=== PATIENT | female | born 1950 | race Two or more races ===

== ENCOUNTER → 2016-10-27 | Outpatient (CLI) | payer MEDICAID ==
[~2016-10-27] MED LIST: GADOBUTROL 10 ML VIAL IVP ONE
== END ==
LOC: FIMAGING 13:27
PROVIDERS: ATTEND Family Medicine
DX: M54.6 Pain in thoracic spine (principal); M51.34 Other intervertebral disc degeneration, thoracic region
CPT/HCPCS: A9585

== ENCOUNTER → 2017-11-27 | Outpatient (CLI) | payer OTHER, MEDICAID | LOC: FIMAGING 10:45 | PROVIDERS: ATTEND Physician Assistant | DX: R19.00 Intra-abdominal and pelvic swelling, mass and lump, unspecified site (principal); N64.4 Mastodynia ==

== ENCOUNTER → 2017-11-27 | Outpatient (CLI) | payer OTHER, MEDICAID | LOC: FIMAGING 09:39 | PROVIDERS: ATTEND Physician Assistant | DX: N64.4 Mastodynia (principal) ==

== ENCOUNTER 2018-01-22 20:54 | Emergency (ER) | payer OTHER, MEDICAID ==
[2018-01-22 22:08] LABS: PLATELET COUNT 252 10^3/uL (150-400)
--- NOTE | 2018-01-22 22:12 | EDPHY ---
H & P Stated Complaint: SOB, cough with bilat feet swelling no travel for 4 days Time Seen by Provider: 01/22/18 22:00 HPI/ROS: History obtained using hourly sign language interpreter at the bedside. HPI The patient presents with 4 days of progressive left greater than right lower extremity edema and pain. This started spontaneously and has gotten progressively worse. It makes it difficult for her to walk because of the degree of swelling. She denies any injuries. She says the swelling feels similar to when she was diagnosed with a DVT in 2016 and took anticoagulants for 3 months, not taking any currently. Since today she has developed shortness of breath which is present constantly though is somewhat worse when she ambulates. It is associated with a dry cough. She is able to lie flat at night. As she is on Lasix daily and her dose has not changed recently. She is being evaluated by her primary care doctor for which she describes as high protein levels. REVIEW OF SYSTEMS Constitutional: No fever, no chills. Eyes: No discharge. ENT: No sore throat. Cardiovascular: No chest pain, no palpitations. Respiratory: No cough, no shortness of breath. Gastrointestinal: No abdominal pain, no vomiting. Genitourinary: No hematuria. Musculoskeletal: No back pain. Skin: No rashes. Neurological: No headache. 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, not currently on anticoagulation, type 2 diabetes, hypertension, hyperlipidemia Soc Hx: Housed PHYSICAL General Appearance: Alert, no distress Eyes: Pupils equal and round no pallor or injection ENT, Mouth: Mucous membranes moist Respiratory: There are no retractions, lungs are clear to auscultation Cardiovascular: Regular rate and rhythm Gastrointestinal: Abdomen is soft and non-tender, no masses, bowel sounds normal Neurological: A&O, moves all extremities Skin: Warm and dry, no rashes Musculoskeletal: Neck is supple non tender Extremities: Left greater than right lower extremity edema with erythematous papular rash Psychiatric: Patient is oriented X 3, there is no agitation Source: Patient Exam Limitations: No limitations - Personal History Current Tetanus/Diphtheria Vaccine: Yes Current Tetanus Diphtheria and Acellular Pertussis (TDAP): Yes - Medical/Surgical History Hx Asthma: No Hx Chronic Respiratory Disease: No Hx Diabetes: Yes Hx Cardiac Disease: No Hx Renal Disease: No Hx Cirrhosis: No Hx Alcoholism: No Hx HIV/AIDS: No Hx Splenectomy or Spleen Trauma: No Other PMH: HTN, DM, DVT, high chol - Social History Smoking Status: Never smoked Constitutional: Initial Vital Signs Temperature (C) 37.0 C 01/22/18 21:07 Heart Rate 90 01/22/18 21:07 Respiratory Rate 16 01/22/18 21:07 Blood Pressure 148/74 H 01/22/18 21:07 O2 Sat (%) 94 01/22/18 21:07 O2 Delivery Mode Room Air O2 (L/minute) 2 Allergies/Adverse Reactions: ibuprofen Allergy (Unknown, Verified 01/17/16 06:33) Home Medications: Medication Instructions Recorded Acetaminophen [Tylenol 325mg (*)] 650 mg PO Q4 PRN #0 tab 01/17/16 Citalopram [CeleXA 20 MG] 20 mg PO DAILY 01/17/16 Furosemide [Lasix 20 MG (*)] 20 mg PO MWF 01/17/16 Herbals/Supplements -Info Only 1 ea PO DAILY 01/17/16 Losartan Potassium [Cozaar 50 mg 50 mg PO DAILY 01/17/16 (*)] Omeprazole [Prilosec 20 mg] 20 mg PO BIDMEAL 01/17/16 Potassium Chloride [Klor-Con 10 meq PO MWF 01/17/16 Sprinkle] amLODIPine BESYLATE [Norvasc 5 mg 5 mg PO DAILY 01/17/16 (*)] metFORMIN SR [Glucophage XR 500 mg 500 mg PO BIDMEAL 01/17/16 (*)] oxyCODONE IR [Oxycodone Ir (*)] 5 mg PO HS PRN 01/17/16 oxyCODONE IR [Oxycodone Ir (*)] 10 mg PO DAILY PRN 01/17/16 Amlodipine Besylate 10/19/16 Flaxseed Oil 10/19/16 IRON 10/19/16 Vitamin D3 10/19/16 Miralax 17 gm (*) 10/24/16 Potassium Chloride 10/24/16 Medical Decision Making - Diagnostics Imaging Results: Imaging Impressions Chest X-Ray 01/22/18 22:01 Impression: Nothing new. Nonspecific peribronchial thickening is unchanged. Extremity Venous Study 01/22/18 22:10 Impression: No evidence of deep vein thrombosis in the left leg. Findings and recommendations discussed with Lina Davis MD at 10:56 PM hour, 01/22/2018. Final report concurs with initial preliminary interpretation. CT chest with contrast demonstrates no pulmonary embolism, discussed with Dr. Dickens of Radiology. Imaging: Discussed imaging studies w/ scallop raker Radiologist Differential Diagnosis: 67-year-old female presents with several days of right greater than left lower extremity edema also with 1 day of shortness of breath. Differential diagnosis includes PE, DVT, heart failure, pneumonia, COPD, less likely cellulitis. In the emergency department, patient had DVT study which was negative. Labs were checked and were relatively unremarkable including troponin. D-dimer was elevated at 1.4. Because of this and her shortness of breath, decision was made to perform CT scan of her chest which did not demonstrate pulmonary embolism. I have given her a dose of Lasix, 20 mg IV with appropriate diuresis here. Her symptoms have improved. She takes Lasix every other day 20 mg for peripheral edema. I have advised her to take it for the next 4 days continuously to see if this helps her leg swelling. I have asked that she follow up with her primary care doctor. She is happy with this plan and will be discharged from the emergency department. - Data Points Laboratory Results: Laboratory Results 01/22/18 21:35 01/22/18 21:35 01/22/18 01/22/18 01/22/18 22:58 21:35 21:35 WBC RBC Hgb Hct MCV MCH MCHC RDW Plt Count MPV Neut % (Auto) Lymph % (Auto) Mower % (Auto) Eos % (Auto) Baso % (Auto) Nucleat RBC Rel Count Absolute Neuts (auto) Absolute Lymphs (auto) Absolute Monos (auto) Absolute Eos (auto) Absolute Basos (auto) Absolute Nucleated RBC Immature Gran % Immature Gran # D-Dimer 1.28 ug/mLFEU H ug/mLFEU (0.00-0.50) Sodium 141 mEq/L mEq/L (135-145) Potassium 3.5 mEq/L mEq/L (3.3-5.0) Chloride 102 mEq/L mEq/L (97-110) Carbon Dioxide 25 mEq/l mEq/l (22-31) Anion Gap 14 mEq/L mEq/L (8-16) BUN 21 mg/dL mg/dL (7-23) Creatinine 0.7 mg/dL mg/dL (0.6-1.0) Estimated GFR > 60 Glucose 216 mg/dL H mg/dL (70-100) Calcium 9.8 mg/dL mg/dL (8.5-10.4) POC Troponin I 0.00 ng/mL ng/mL (0.00-0.08) NT-Pro-B Natriuret Pep 43 pg/mL pg/mL (0-125) 01/22/18 21:35 WBC 8.38 10^3/uL 10^3/uL (3.80-9.50) RBC 4.21 10^6/uL 10^6/uL (4.18-5.33) Hgb 11.8 g/dL L g/dL (12.6-16.3) Hct 35.2 % L % (38.0-47.0) MCV 83.6 fL fL (81.5-99.8) MCH 28.0 pg pg (27.9-34.1) MCHC 33.5 g/dL g/dL (32.4-36.7) RDW 15.0 % % (11.5-15.2) Plt Count 252 10^3/uL 10^3/uL (150-400) MPV 9.3 fL fL (8.7-11.7) Neut % (Auto) 52.4 % % (39.3-74.2) Lymph % (Auto) 34.5 % % (15.0-45.0) Mower % (Auto) 8.7 % % (4.5-13.0) Eos % (Auto) 3.6 % % (0.6-7.6) Baso % (Auto) 0.4 % % (0.3-1.7) Nucleat RBC Rel Count 0.0 % % (0.0-0.2) Absolute Neuts (auto) 4.40 10^3/uL 10^3/uL (1.70-6.50) Absolute Lymphs (auto) 2.89 10^3/uL 10^3/uL (1.00-3.00) Absolute Monos (auto) 0.73 10^3/uL 10^3/uL (0.30-0.80) Absolute Eos (auto) 0.30 10^3/uL 10^3/uL (0.03-0.40) Absolute Basos (auto) 0.03 10^3/uL 10^3/uL (0.02-0.10) Absolute Nucleated RBC 0.00 10^3/uL 10^3/uL (0-0.01) Immature Gran % 0.4 % % (0.0-1.1) Immature Gran # 0.03 10^3/uL 10^3/uL (0.00-0.10) D-Dimer Sodium Potassium Chloride Carbon Dioxide Anion Gap BUN Creatinine Estimated GFR Glucose Calcium POC Troponin I NT-Pro-B Natriuret Pep Medications Given: Discontinued Medications Albuterol/Ipratropium (Duoneb) 3 ml IH EDNOW ONE Stop: 01/22/18 23:07 Last Admin: 01/22/18 23:39 Dose: 3 ml Furosemide (Lasix Injection) 20 mg IVP EDNOW ONE Stop: 01/23/18 00:00 Last Admin: 01/23/18 00:17 Dose: 20 mg Point of Care Test Results: Chemistry 01/22/18 22:58 POC Troponin I 0.00 ng/mL ng/mL (0.00-0.08) Departure - Departure Disposition: Home, Routine, Self-Care Clinical Impression: Shortness of breath, Leg swelling Condition: Good Instructions: Dyspnea (ED) Additional Instructions: Le recomiendo que tome Lasix diariamente makenna los prximos 4 soriano para ashley si esto ayuda a hinchar la pierna. Por favor, shaylee un seguimiento con cartagena mdico en los prximos 2-3 soriano para celia nueva verificacin. Regrese al departamento de emergencias si es peor de alguna manera. Referrals: Allison Cisneros MD [Primary Care Provider] - As per Instructions Print Language: Macanese
--- NOTE | 2018-01-22 22:58 | CPEKG ---
Heart Rate: 68 RR Interval: 882 P-R Interval: 180 QRSD Interval: 84 QT Interval: 424 QTC Interval: 451 P [place]: 42 QRS [place]: 11 T Wave [place]: 35 EKG Severity - ABNORMAL ECG - EKG Impression: SINUS RHYTHM EKG Impression: ATRIAL PREMATURE COMPLEX EKG Impression: NONSPECIFIC T ABNORMALITIES, ANTERIOR LEADS Electronically Signed By: Lina Davis 23-Jan-2018 03:24:03
[2018-01-22] MEDS ORDERED: IPRATROPIUM/ALBUTEROL 3 ML DEYVIAL IH ONE (23:06)
[2018-01-22] MEDS ORDERED: IOPAMIDOL (ISOVUE 370) 100 ML BTL IV ONE (23:22)
[2018-01-22] MEDS ORDERED: FUROSEMIDE 20 MG/2 ML VIAL IVP ONE (23:59)
[2018-01-23 02:19] VITALS: BP 114/64
== END 2018-01-23 02:19 | disposition home or self-care (01) ==
DX: M79.89 Other specified soft tissue disorders (principal); R06.02 Shortness of breath; I10 Essential (primary) hypertension; E11.9 Type 2 diabetes mellitus without complications; Z79.84 Long term (current) use of oral hypoglycemic drugs
CPT/HCPCS: 71046; 71275; 93005; 93971; 96374; 99285; J1940; Q9967; 84484-PO

== ENCOUNTER 2018-05-12 05:49 | Day surgery (SDC) | payer OTHER, MEDICAID ==
[2018-05-12] MEDS ORDERED: ceFAZolin 2 GM/DEXTROSE 100 ML IV ONE (06:05)
[2018-05-12] MEDS ORDERED: LR 1,000 ML IV ONE (06:08)
[2018-05-12] MEDS ORDERED: LIDOCAINE 1% 2 ML INJ ONE (06:17)
[2018-05-12] MEDS ORDERED: BUPIVACAINE 0.5% 30 ML SDV ONE (06:27)
[2018-05-12] MEDS ORDERED: oxyCODONE IR 5 MG TAB PO PRN (06:46)
[2018-05-12] MEDS ORDERED: NALOXONE HCL 0.4 MG/ML INJ IVP PRN (06:46)
[2018-05-12] MEDS ORDERED: MIDAZOLAM 2 MG/2 ML VIAL IVP ONE (06:46)
[2018-05-12] MEDS ORDERED: ACETAMINOPHEN 500 MG TAB PO PRN (06:46)
[2018-05-12] MEDS ORDERED: HYDROCODONE/APAP 5/325 TAB PO PRN (06:46)
[2018-05-12] MEDS ORDERED: HYDROmorphONE/DILAUDID 2 MG/ML INJ IVP PRN (06:46)
[2018-05-12] MEDS ORDERED: ONDANSETRON 4 MG/2 ML VIAL IVP PRN (06:46)
[2018-05-12] MEDS ORDERED: DEXAMETHASONE 4 MG/ML VIAL IVP PRN (06:46)
[2018-05-12] MEDS ORDERED: ALBUTEROL 3 ML DEYVIAL IH PRN (06:46)
--- NOTE | 2018-05-12 06:48 | PDANEPAE ---
ANE History of Present Illness Breast Biopsy ANE Past Medical History - Cardiovascular History Hx Hypertension: Yes Hx Arrhythmias: No Hx Chest Pain: No Hx Coronary Artery / Peripheral Vascular Disease: No Hx CHF / Valvular Disease: No Hx Palpitations: No Cardiovascular History Comment: pcp monitors bp medications. hx of dvt with panectomy 2016 - Pulmonary History Hx COPD: No Hx Asthma/Reactive Airway Disease: No Hx Recent Upper Respiratory Infection: No Hx Oxygen in Use at Home: No Hx Sleep Apnea: Yes Sleep Apnea Screening Result - Last Documented: Positive Pulmonary History Comment: WANDER USES C-PAP INSTRUCTED TO BRING DOS - Neurologic History Hx Cerebrovascular Accident: No Hx Seizures: No Hx Dementia: No - Endocrine History Hx Diabetes: Yes Endocrine History Comment: NIDDM - Renal History Hx Renal Disorders: No - Liver History Hx Hepatic Disorders: No - Neurological & Psychiatric Hx Hx Neurological and Psychiatric Disorders: Yes Neurological / Psychiatric History Comment: depression/ANXIETY - Cancer History Hx Cancer: No - Congenital Disorder History Hx Congenital Disorders: No - GI History Hx Gastrointestinal Disorders: Yes Gastrointestinal History Comment: GERD. CONSTIPATION - Other Health History Other Health History: HX OF DVT. ANEMIA. OSTEOARTHRITIS - Chronic Pain History Chronic Pain: Yes (back on the right side) - Surgical History Prior Surgeries: egd . ear surgery. right TOTAL knee 2009. hortencia 2016. tubal ligation. ABDOMINAL penectomy 2016 ANE Review of Systems Review of Systems: - Exercise capacity METS (RN): 4 METS ANE Patient History - Allergies Allergies/Adverse Reactions: ibuprofen Allergy (Unknown, Verified 05/09/18 12:37) STOMACH UPSET - Home Medications Home Medications: Citalopram [CeleXA 20 MG] 20 mg PO DAILY 01/17/16 [Last Taken 05/11/18 08:00] Furosemide [Lasix 20 MG (*)] 20 mg PO MWF 01/17/16 [Last Taken 05/10/18] Herbals/Supplements -Info Only 1 ea PO DAILY 01/17/16 [Last Taken 05/11/18] Losartan Potassium [Cozaar 50 mg (*)] 50 mg PO DAILY 01/17/16 [Last Taken 08:00] Omeprazole [Prilosec 20 mg] 20 mg PO DAILY 01/17/16 [Last Taken 05/12/18 04:00] Potassium Chloride [Klor-Con Sprinkle] 10 meq PO DAILY 01/17/16 [Last Taken 02/19] amLODIPine BESYLATE [Norvasc 5 mg (*)] 5 mg PO DAILY 01/17/16 [Last Taken 04:00] metFORMIN SR [Glucophage XR 500 mg (*)] 500 mg PO BIDMEAL 01/17/16 [Last Taken 05/11/18 17:00] oxyCODONE IR [Oxycodone Ir (*)] 5 mg PO HS PRN 01/17/16 [Last Taken 05/11/18 17: 00] oxyCODONE IR [Oxycodone Ir (*)] 10 mg PO DAILY PRN 01/17/16 [Last Taken 04:00] Flaxseed Oil BID 10/19/16 [Last Taken 05/11/18 16:00] IRON DAILY 10/19/16 [Last Taken 05/11/18] Miralax 17 gm (*) HS 10/24/16 [Last Taken 05/10/18] Atorvastatin Calcium HS 05/09/18 [Last Taken 05/11/18 17:00] Chlorpheniramine Maleate DAILY 05/09/18 [Last Taken 05/11/18] - Smoking Hx Smoking Status: Never smoked - Family Anes Hx Family Hx Anesthesia Complications: none ANE Labs/Vital Signs - Vital Signs Height: 154.94 cm Weight: 90.718 kg ANE Physical Exam - Airway Neck exam: FROM Mallampati Score: Class 2 Mouth exam: normal dental/mouth exam - Pulmonary Pulmonary: clear to auscultation - Cardiovascular Cardiovascular: regular rate and rhythym - ASA Status ASA Status: III ANE Anesthesia Plan Anesthesia Plan: GA w LMA
[2018-05-12] MEDS ORDERED: NA BICARBONATE 50 MEQ/50 ML VIAL ONE (06:55)
[2018-05-12] MEDS ORDERED: LIDOCAINE 1% 300 MG/30 ML SDV ONE (06:55)
[2018-05-12] MEDS ORDERED: THROMBIN (BOVINE) 5,000 UNIT VIAL TP ONE (06:55)
[2018-05-12] MEDS ORDERED: PROPOFOL 200 MG/20 ML VIAL ONE (07:01)
[2018-05-12] MEDS ORDERED: fentaNYL 100 MCG/2 ML INJ ONE ×2 (07:02→08:16)
--- NOTE | 2018-05-12 07:13 | PDHPUP ---
History & Physical Update H&P update statement: This history and physical update is based on an assessment of the patient which was completed after admission or registration (within 24 hours), but prior to the surgery/procedure. H&P update: H&P reviewed & patient examined, no change in patient's condition since H&P completed
[2018-05-12] MEDS ORDERED: ONDANSETRON 4 MG/2 ML VIAL ONE (07:29)
[2018-05-12] MEDS ORDERED: METOCLOPRAMIDE 10 MG/2 ML VIAL ONE (07:29)
[2018-05-12] MEDS ORDERED: ePHEDrine SULFATE 25 MG/5 ML SYR ONE (07:37)
--- NOTE | 2018-05-12 08:05 | POSTANESTH ---
Post Anesthetic Evaluation Cardiovascular Status: Normal, Stable Respiratory Status: Normal, Stable Level of Consciousness/Mental Status: Can Participate in Eval, Alert and Oriented Pain Control: Adequate, Prn Tx Ordered Nausea/Vomiting Control: Adequate, Prn Tx Ordered Complications Possibly Related to Anesthesia: None Noted
--- NOTE | 2018-05-12 08:06 | POSTOPPROG ---
Post Op Note Date of Operation: 05/12/18 Surgeon: Chriss [facility] Director: Elvira Tran Anesthesiologist: Tonio Felix Anesthesia: GET(General Endotracheal) Pre-op Diagnosis: R painful breast mass Post-op Diagnosis: same Procedure: excisional R breast biopsies Findings: lipomatous tissue Inf/Abcess present in the surg proc area at time of surgery?: No EBL: Minimal Complications: none Specimen(s): R breast mass to pathology
[2018-05-12] MEDS: fentaNYL 100 MCG/2 ML INJ IVP PRN ×2 (08:18→08:41)
[2018-05-12] MEDS ORDERED: oxyCODONE IR 5 MG TAB ONE (09:04)
[2018-05-12 10:19] VITALS: BP 125/61
== END 2018-05-12 10:05 | disposition home or self-care (01) ==
LOC: FSGY 05:49
PROVIDERS: ATTEND Surgery
PROC: 0HBT0ZZ Excision of Right Breast, Open Approach (ICD-10-PCS; principal; 2018-05-12 07:15)
DX: D24.1 Benign neoplasm of right breast (principal); D17.9 Benign lipomatous neoplasm, unspecified; N64.4 Mastodynia; E11.9 Type 2 diabetes mellitus without complications; I10 Essential (primary) hypertension; G47.33 Obstructive sleep apnea (adult) (pediatric); Z86.718 Personal history of other venous thrombosis and embolism
CPT/HCPCS: J0690; J2250; J2405; J2704; J2765; J3010

== ENCOUNTER 2018-05-17 16:47 | Emergency (ER) | payer OTHER, MEDICAID ==
[2018-05-17] MEDS ORDERED: NS 1,000 ML IV ONE ×2 (17:18→18:47)
[2018-05-17] MEDS ORDERED: PROMETHAZINE HCL 25 MG/ML INJ IVP ONE (17:19)
--- NOTE | 2018-05-17 17:28 | EDPHY ---
H & P Time Seen by Provider: 05/17/18 17:10 HPI/ROS: CHIEF COMPLAINT: Nausea and chills HISTORY OF PRESENT ILLNESS: Patient had breast biopsy on Saturday this week. She was doing well until yesterday when she started having nausea and chills. This is associated with some pain in her right chest over the wound site extending to her right arm. Not associated with cough or urinary symptoms or vomiting or diarrhea. Symptoms mild to moderate. Not worse with position deep breath or exertion. No hemoptysis, no leg swelling. Patient does have a history of DVT in her right leg in 2016. She also has history of diabetes and hypertension. She does not have any symptoms in the left side of her chest. REVIEW OF SYSTEMS: Eye: no change in vision ENT: no sore throat Cardiac: No palpitations or syncope Pulmonary: HPI, not short of breath. Abdomen: No abdominal pain. No vomiting. She does have nausea. She has had occasional blood with mucus in her stool for at least a year, no change today. Musculoskeletal: No leg swelling Skin: no rash Neuro: no headache Constitutional: no fever : no urinary symptoms A comprehensive 10 point review of systems is otherwise negative aside from elements mentioned in the history of present illness. PAST MEDICAL HISTORY: Hypertension, diabetes, DVT, hypercholesterolemia. Partial gastrectomy and cholecystectomy. Right breast biopsy earlier this week. Social history: Assisted with wound care technician personally present in the room for Macedonian language. General Appearance: Alert and conversant, cooperative. Eyes: No scleral icterus. ENT, Mouth: Normal mucous membranes. Normal pharynx. Respiratory: Normal respiratory effort, breath sounds equal, lungs are clear to auscultation. Not splinting. Cardiovascular: Regular rate and rhythm. No murmurs. Gastrointestinal: Abdomen is soft and non tender. Neurological: Alert, face symmetric, normal motor and sensory in extremities. Skin: The right surgical breast biopsy site is clean dry and intact. Steri- Strips are present. No fluctuance and no surrounding redness and no lymphangitis. Musculoskeletal: No peripheral edema in the right arm compared to the left. Normal right radial pulse and normal motor and sensory in the right hand. No calf tenderness. Psychiatric: Not agitated. Emergency Department course/MDM: Plan for chest x-ray and urinalysis with chills. EKG troponin D-dimer and chest x-ray with right-sided chest pain. Ultrasound of the right arm to evaluate for DVT. 1812: Ultrasound negative for DVT, EKG and troponin negative. D-dimer elevated and CT angio discussed and consented. Urine pending. 1901: CTA per Dr. Kenney negative for PE or other reason for chest pain. Results discussed with the patient through wound care technician. She is having a lot of anxiety, attempted to reassure her that she does not appear to have an emergent medical or surgical condition tonight. 1938: Patient still having a lot of anxiety despite reassurance. 0.5 mg IV Ativan. I think it is safe for her to be discharged; patient in agreement. Smoking Status: Never smoked Constitutional: Initial Vital Signs Temperature (C) 36.8 C 05/17/18 16:57 Heart Rate 96 05/17/18 16:57 Respiratory Rate 18 05/17/18 16:57 Blood Pressure 115/85 H 05/17/18 16:57 O2 Sat (%) 95 05/17/18 16:57 O2 Delivery Mode Room Air Allergies/Adverse Reactions: ibuprofen Adverse Reaction (Unknown, Verified 05/17/18 17:03) STOMACH UPSET Home Medications: Medication Instructions Recorded Citalopram [CeleXA 20 MG] 20 mg PO DAILY 01/17/16 Furosemide [Lasix 20 MG (*)] 20 mg PO MWF 01/17/16 Herbals/Supplements -Info Only 1 ea PO DAILY 01/17/16 Losartan Potassium [Cozaar 50 mg 50 mg PO DAILY 01/17/16 (*)] Omeprazole [Prilosec 20 mg] 20 mg PO DAILY 01/17/16 Potassium Chloride [Klor-Con 10 meq PO DAILY 01/17/16 Sprinkle] amLODIPine BESYLATE [Norvasc 5 mg 5 mg PO DAILY 01/17/16 (*)] metFORMIN SR [Glucophage XR 500 mg 500 mg PO BIDMEAL 01/17/16 (*)] oxyCODONE IR [Oxycodone Ir (*)] 5 mg PO HS PRN 01/17/16 oxyCODONE IR [Oxycodone Ir (*)] 10 mg PO DAILY PRN 01/17/16 Flaxseed Oil BID 10/19/16 IRON DAILY 10/19/16 Miralax 17 gm (*) HS 10/24/16 Atorvastatin Calcium HS 05/09/18 Chlorpheniramine Maleate DAILY 05/09/18 oxyCODONE HCL/ACETAMINOPHEN 1 each PO Q6H #20 tablet 05/12/18 [Percocet 5-325 mg Tablet] Medical Decision Making - Diagnostics EKG Interpretation: 12-lead EKG interpreted by me; official reading is in computer system. My interpretation is sinus rhythm with prolonged QT, no ischemic changes. Imaging Results: Imaging Impressions Chest X-Ray 05/17/18 17:18 Impression: Mild perihilar bronchitis, without a focal infiltrate. Extremity Venous Study 05/17/18 17:19 Impression: There is no sonographic evidence of venous thrombosis in the right arm. Findings were discussed with BROWN GALLEGOS MD at 18:06, on 05/17/2018. Chest/Thorax CTA 05/17/18 18:11 Impression: There is no evidence for pulmonary artery thromboembolic disease. Findings were discussed with BROWN GALLEGOS MD at 19:00, on 05/17/2018. Imaging: Discussed imaging studies w/ combination operator Radiologist, I viewed and interpreted images myself Differential Diagnosis: Differential diagnosis considered for chest pain including but not limited to myocardial ischemia, aortic dissection, pericarditis, pulmonary embolus, chest wall pain, pleural inflammation and pulmonary infectious causes. - Data Points Laboratory Results: Laboratory Results 05/17/18 17:25 05/17/18 17:25 05/17/18 05/17/18 05/17/18 19:00 18:50 17:25 WBC RBC Hgb Hct MCV MCH MCHC RDW Plt Count MPV Neut % (Auto) Lymph % (Auto) [place] % (Auto) Eos % (Auto) Baso % (Auto) Nucleat RBC Rel Count Absolute Neuts (auto) Absolute Lymphs (auto) Absolute Monos (auto) Absolute Eos (auto) Absolute Basos (auto) Absolute Nucleated RBC Immature Gran % Immature Gran # D-Dimer Sodium 141 mEq/L mEq/L (135-145) Potassium 4.0 mEq/L mEq/L (3.3-5.0) Chloride 106 mEq/L mEq/L (97-110) Carbon Dioxide 23 mEq/l mEq/l (22-31) Anion Gap 12 mEq/L mEq/L (6-14) BUN 17 mg/dL mg/dL (7-23) Creatinine 0.7 mg/dL mg/dL (0.6-1.0) Estimated GFR > 60 Glucose 121 mg/dL H mg/dL (70-100) Calcium 9.9 mg/dL mg/dL (8.5-10.4) POC Troponin I 0.00 ng/mL ng/mL (0.00-0.08) Urine Color YELLOW Urine Appearance CLEAR Urine pH 5.0 (5.0-7.5) Ur Specific [place] > 1.060 H (1.002-1.030) Urine Protein NEGATIVE (NEGATIVE) Urine Ketones NEGATIVE (NEGATIVE) Urine Blood NEGATIVE (NEGATIVE) Urine Nitrate NEGATIVE (NEGATIVE) Urine Bilirubin NEGATIVE (NEGATIVE) Urine Urobilinogen NEGATIVE EU EU (0.2-1.0) Ur Leukocyte Esterase NEGATIVE (NEGATIVE) Urine Glucose NEGATIVE (NEGATIVE) 05/17/18 05/17/18 17:25 17:25 WBC 8.60 10^3/uL 10^3/uL (3.80-9.50) RBC 4.50 10^6/uL 10^6/uL (4.18-5.33) Hgb 12.6 g/dL g/dL (12.6-16.3) Hct 38.2 % % (38.0-47.0) MCV 84.9 fL fL (81.5-99.8) MCH 28.0 pg pg (27.9-34.1) MCHC 33.0 g/dL g/dL (32.4-36.7) RDW 15.5 % H % (11.5-15.2) Plt Count 296 10^3/uL 10^3/uL (150-400) MPV 9.0 fL fL (8.7-11.7) Neut % (Auto) 58.8 % % (39.3-74.2) Lymph % (Auto) 31.4 % % (15.0-45.0) [place] % (Auto) 8.1 % % (4.5-13.0) Eos % (Auto) 1.2 % % (0.6-7.6) Baso % (Auto) 0.3 % % (0.3-1.7) Nucleat RBC Rel Count 0.0 % % (0.0-0.2) Absolute Neuts (auto) 5.05 10^3/uL 10^3/uL (1.70-6.50) Absolute Lymphs (auto) 2.70 10^3/uL 10^3/uL (1.00-3.00) Absolute Monos (auto) 0.70 10^3/uL 10^3/uL (0.30-0.80) Absolute Eos (auto) 0.10 10^3/uL 10^3/uL (0.03-0.40) Absolute Basos (auto) 0.03 10^3/uL 10^3/uL (0.02-0.10) Absolute Nucleated RBC 0.00 10^3/uL 10^3/uL (0-0.01) Immature Gran % 0.2 % % (0.0-1.1) Immature Gran # 0.02 10^3/uL 10^3/uL (0.00-0.10) D-Dimer 0.98 ug/mLFEU H ug/mLFEU (0.00-0.50) Sodium Potassium Chloride Carbon Dioxide Anion Gap BUN Creatinine Estimated GFR Glucose Calcium POC Troponin I Urine Color Urine Appearance Urine pH Ur Specific [place] Urine Protein Urine Ketones Urine Blood Urine Nitrate Urine Bilirubin Urine Urobilinogen Ur Leukocyte Esterase Urine Glucose Medications Given: Discontinued Medications Sodium Chloride (Ns) 1,000 mls @ 0 mls/hr IV EDNOW ONE; Wide Open PRN Reason: Protocol Stop: 05/17/18 17:19 Last Admin: 05/17/18 17:48 Dose: 1,000 mls Sodium Chloride (Ns) 1,000 mls @ 0 mls/hr IV EDNOW ONE; Wide Open PRN Reason: Protocol Stop: 05/17/18 18:48 Last Admin: 05/17/18 19:21 Dose: 1,000 mls Lorazepam (Ativan Injection) 0.5 mg IVP EDNOW ONE Stop: 05/17/18 19:40 Last Admin: 05/17/18 19:41 Dose: 0.5 mg Promethazine HCl (Phenergan) 12.5 mg IVP EDNOW ONE Stop: 05/17/18 17:20 Last Admin: 05/17/18 17:49 Dose: 12.5 mg Promethazine HCl (Phenergan 25 Mg Prepack #4) 1 btl TAKEHOME EDNOW ONE Stop: 05/17/18 19:14 Last Admin: 05/17/18 19:18 Dose: 1 btl Point of Care Test Results: Chemistry 05/17/18 18:50 POC Troponin I 0.00 ng/mL ng/mL (0.00-0.08) Departure - Departure Disposition: Home, Routine, Self-Care Clinical Impression: Nausea Condition: Good Instructions: Acute Nausea and Vomiting (ED) Referrals: Perlita Pa MD [Primary Care Provider] - As per Instructions
[2018-05-17 17:46] LABS: PLATELET COUNT 296 10^3/uL (150-400)
--- NOTE | 2018-05-17 18:13 | CPEKG ---
Test Reason : OPEN Blood Pressure : / mmHG Vent. Rate : 078 BPM Atrial Rate : 078 BPM P-R Int : 165 ms QRS Dur : 077 ms QT Int : 441 ms P-R-T Axes : 065 024 039 degrees QTc Int : 503 ms Sinus rhythm Prolonged QT interval Confirmed by Lele Calderon ([id number]) on 05/17/2018 6:12:33 PM Referred By: Confirmed By:Lele Calderon
[2018-05-17] MEDS ORDERED: IOPAMIDOL (ISOVUE 370) 100 ML BTL IV ONE (18:15)
[2018-05-17] MEDS ORDERED: PROMETHAZINE 25 MG PREPACK #4 BTL TAKEHOME ONE (19:13)
[2018-05-17] MEDS ORDERED: LORazepam 2 MG/ML INJ IVP ONE (19:39)
[2018-05-17] MEDS ORDERED: LORazepam 2 MG/ML INJ ONE (19:40)
[2018-05-17 20:06] VITALS: BP 117/64
== END 2018-05-17 20:48 | disposition home or self-care (01) ==
DX: R11.0 Nausea (principal); E86.9 Volume depletion, unspecified; E11.9 Type 2 diabetes mellitus without complications; I10 Essential (primary) hypertension; Z86.718 Personal history of other venous thrombosis and embolism; Z98.890 Other specified postprocedural states
CPT/HCPCS: 71046; 71275; 93005; 93971; 96361; 96374; 96375; 99285; J2060; J2550; Q9967; 84484-PO

== ENCOUNTER → 2018-08-14 | Outpatient (CLI) | payer OTHER, MEDICAID | LOC: FIMAGING 11:50 | PROVIDERS: ATTEND Surgery | DX: Z13.820 Encounter for screening for osteoporosis (principal); N95.9 Unspecified menopausal and perimenopausal disorder; R10.9 Unspecified abdominal pain ==

== ENCOUNTER 2018-11-16 11:10 | Emergency (ER) | payer OTHER, MEDICAID ==
--- NOTE | 2018-11-16 11:26 | EDPHY ---
H & P Time Seen by Provider: 11/16/18 11:25 HPI/ROS: CHIEF COMPLAINT: Back pain and dysuria HISTORY OF PRESENT ILLNESS: Patient said she had similar symptoms and was prescribed Keflex over the phone by her primary care doctor on October 25. Symptoms resolved and then reoccurred over the last 2 days starting yesterday. Describes left-sided back pain different than her chronic back pain for which she takes oxycodone. Left flank does not radiate associated with a burning sensation with urination. Symptoms moderate, a little bit changed by position or movement. Not associated with fever but she has had a sensation of chills. She also has pain in both arms. Denies hematuria, skin rash, recent injury or trauma. REVIEW OF SYSTEMS: Eye: No visual symptoms ENT: no sore throat Cardiac: no chest pain or syncope Pulmonary: no cough or SOB Abdomen: no vomiting, diarrhea, abdominal pain Musculoskeletal: HPI Skin: no rash Neuro: no headache, feels like she has a little bit of weakness in both legs Constitutional: HPI : HPI A comprehensive 10 point review of systems is otherwise negative aside from elements mentioned in the history of present illness. PAST MEDICAL HISTORY: Includes hypertension diabetes, DVT, high cholesterol, right knee surgery, partial gastrectomy, cholecystectomy. Social history: Nonsmoker, [place] speaking history and physical and serial exams with patient carrier personally present in the room. General Appearance: Alert and conversant, cooperative. Eyes: No scleral icterus. ENT, Mouth: Normal mucous membranes. Respiratory: Normal respiratory effort, breath sounds equal, lungs are clear to auscultation. Cardiovascular: Regular rate and rhythm. Gastrointestinal: Abdomen is soft and non tender. Neurological: Alert, face symmetric, normal motor and sensory in extremities. Toes downgoing bilaterally, no clonus. 5/5 strength in both lower extremities. Patellar reflexes 2+ and symmetric. Ambulatory in the ED without ataxia or assistance. No limping. Skin: Warm and dry, no rashes. Musculoskeletal: A little bit of tenderness on the back in the area of symptoms over the left flank. No midline spinal tenderness. Psychiatric: Not agitated. Emergency Department course/MDM: Plan for urinalysis and noncontrast CT scan to evaluate for renal colic. I think that sepsis or bloodstream infection or endocarditis is less likely, she does not have acute surgical abdominal exam, not febrile or hypotensive or tachycardic. She does not have focal neurologic deficit in her lower extremities and denies incontinence. I think cauda equina or spinal cord compression would be less likely. 1235: CT negative per Dr. Daniels. Specifically no intra-abdominal surgical process and no renal colic. Re-evaluated and results discussed at this time. Tylenol, oxycodone, patch. 1430: Feels better, gives me the thumbs up, is improved, stable for discharge. Smoking Status: Never smoked Constitutional: Initial Vital Signs Temperature (C) 36.8 C 11/16/18 11:15 Heart Rate 73 11/16/18 11:15 Respiratory Rate 18 11/16/18 11:15 Blood Pressure 126/56 H 11/16/18 11:15 O2 Sat (%) 96 11/16/18 11:15 O2 Delivery Mode Room Air Allergies/Adverse Reactions: ibuprofen Adverse Reaction (Unknown, Verified 11/16/18 11:17) STOMACH UPSET Home Medications: Medication Instructions Recorded Citalopram [CeleXA 20 MG] 20 mg PO DAILY 01/17/16 Furosemide [Lasix 20 MG (*)] 20 mg PO MWF 01/17/16 Herbals/Supplements -Info Only 1 ea PO DAILY 01/17/16 Losartan Potassium [Cozaar 50 mg 50 mg PO DAILY 01/17/16 (*)] Omeprazole [Prilosec 20 mg] 20 mg PO DAILY 01/17/16 Potassium Chloride [Klor-Con 10 meq PO DAILY 01/17/16 Sprinkle] amLODIPine BESYLATE [Norvasc 5 mg 5 mg PO DAILY 01/17/16 (*)] metFORMIN SR [Glucophage XR 500 mg 500 mg PO BIDMEAL 01/17/16 (*)] oxyCODONE IR [Oxycodone Ir (*)] 5 mg PO HS PRN 01/17/16 oxyCODONE IR [Oxycodone Ir (*)] 10 mg PO DAILY PRN 01/17/16 Flaxseed Oil BID 10/19/16 IRON DAILY 10/19/16 Miralax 17 gm (*) HS 10/24/16 Atorvastatin Calcium HS 05/09/18 Chlorpheniramine Maleate DAILY 05/09/18 oxyCODONE HCL/ACETAMINOPHEN 1 each PO Q6H #20 tablet 05/12/18 [Percocet 5-325 mg Tablet] Medical Decision Making - Diagnostics Imaging Results: Imaging Impressions Abdomen/Pelvis CT 11/16/18 11:48 Impression: 1. No hydronephrosis or obstructing ureteral calculi. 2. Left nephrolithiasis is unchanged since 2016. 3. Scattered diverticula throughout the descending and sigmoid colon. No acute diverticulitis. Findings discussed with emergency department physician, Lele Calderon MD on November 16, 2018 at 12:30 p.m. Attention: This CT examination is specifically designed to evaluate patients who are clinically suspected of having acute obstructive uropathy. This examination does not use radiographic contrast, and as such, provides only a limited evaluation of the abdomen, pelvis, and retroperitoneum. If there is further clinical suspicion for pathological conditions other than obstructive uropathy, a complete CT evaluation of the abdomen and pelvis utilizing intravenous, oral, and rectal contrast should be considered. - Data Points Laboratory Results: 11/16/18 11:37 Urine Color YELLOW Urine Appearance CLEAR Urine pH 5.0 (5.0-7.5) Ur Specific [place] 1.019 (1.002-1.030) Urine Protein NEGATIVE (NEGATIVE) Urine Ketones TRACE H (NEGATIVE) Urine Blood NEGATIVE (NEGATIVE) Urine Nitrate NEGATIVE (NEGATIVE) Urine Bilirubin NEGATIVE (NEGATIVE) Urine Urobilinogen NEGATIVE EU EU (0.2-1.0) Ur Leukocyte Esterase NEGATIVE (NEGATIVE) Urine RBC 1-3 /hpf /hpf (0-3) Urine WBC 1-3 /hpf /hpf (0-3) Ur Epithelial Cells TRACE /lpf /lpf (NONE-1+) Urine Mucus TRACE /lpf /lpf (NONE-1+) Urine Glucose 2+ H (NEGATIVE) Medications Given: Discontinued Medications Acetaminophen (Tylenol) 1,000 mg PO EDNOW ONE Stop: 11/16/18 12:52 Last Admin: 11/16/18 12:59 Dose: 1,000 mg Miscellaneous Medication (Icy Hot Lidocaine/Menthol 4%/1% Patch) 1 patch TD EDNOW ONE Stop: 11/16/18 12:52 Last Admin: 11/16/18 12:59 Dose: 1 patch Oxycodone HCl (Oxycodone Ir) 5 mg PO EDNOW ONE Stop: 11/16/18 11:49 Last Admin: 11/16/18 11:53 Dose: 5 mg Oxycodone HCl (Oxycodone Ir) 5 mg PO EDNOW ONE Stop: 11/16/18 12:53 Last Admin: 11/16/18 12:59 Dose: Not Given Phenazopyridine HCl (Pyridium) 200 mg PO EDNOW ONE Stop: 11/16/18 14:48 Last Admin: 11/16/18 14:50 Dose: 200 mg Departure - Departure Disposition: Home, Routine, Self-Care Clinical Impression: Back pain Condition: Good Instructions: Acute Low Back Pain (ED) Additional Instructions: Okay to take your oral oxycodone for this pain as prescribed. Okay to use [id number] lidocaine patches 4% as directed on the packaging. You can use Uri-Stat or Azo (Pyridium) available without prescription at pharmacy for urinary symptoms. Esta rose ahmet oxycodone oral para andrade dolor cally se le receto. Esta rose usar parches de lidocaina sin receta del 4% cally se le indica en el paquete. Usted puede usar Uri-Stat o Azo (Pyridium) disponible sin receta en la farmacia para sintomas urinarios. Referrals: Perlita Pa MD [Primary Care Provider] - 2-3 days, call for appt. Juan Tomlinson MD [Medical Doctor] - 5-7 days, call for appt. (urology referral for continued urinary symptoms with no infection)
[2018-11-16] MEDS ORDERED: oxyCODONE IR 5 MG TAB PO ONE ×2 (11:48→12:52)
[2018-11-16] MEDS ORDERED: ACETAMINOPHEN 500 MG TAB PO ONE (12:51)
[2018-11-16] MEDS ORDERED: LIDOCAINE 4%/MENTHOL 1% PATCH TD ONE (12:51)
[2018-11-16] MEDS ORDERED: PHENAZOPYRIDINE HCL 200 MG TAB PO ONE (14:47)
[2018-11-16 14:59] VITALS: BP 122/87
[2018-11-16] MEDS ORDERED: PATCH REMOVAL 1 EA PATCH TD SCH (21:00)
== END 2018-11-16 15:00 | disposition home or self-care (01) ==
DX: M54.9 Dorsalgia, unspecified (principal); R30.0 Dysuria; N20.0 Calculus of kidney; K57.30 Diverticulosis of large intestine without perforation or abscess without bleeding; E11.9 Type 2 diabetes mellitus without complications; Z79.4 Long term (current) use of insulin; Z79.899 Other long term (current) drug therapy; I10 Essential (primary) hypertension

== ENCOUNTER → 2018-11-28 | Outpatient (CLI) | payer OTHER, MEDICAID | LOC: FIMAGING 10:15 | PROVIDERS: ATTEND Family Medicine | DX: Z12.31 Encounter for screening mammogram for malignant neoplasm of breast (principal) ==

== ENCOUNTER → 2018-12-10 | Outpatient (CLI) | payer OTHER, MEDICAID | LOC: FIMAGING 14:29 | PROVIDERS: ATTEND Surgery | DX: N64.89 Other specified disorders of breast (principal); R92.8 Other abnormal and inconclusive findings on diagnostic imaging of breast ==